=== PATIENT | female | born 1975 | race African-American/Black ===

== ENCOUNTER 2020-07-05 11:16 | Emergency (ER) | payer OTHER ==
[~2020-07-05] VITALS: Ht 167.6 cm; Wt 135.4 kg
[~2020-07-05 11:16] MED LIST: CETIRIZINE10 MG PO; DENIES CURRENT MEDS; ERY-TAB333 MG OR; FIORICET PO; LORTAB 1010 MG PO; METAMUCIL28 % OR; MUPIROCIN2 % EX; NAPROSYN375 MG OR; NAPROSYN500 MG PO; NO HOME MEDS; OMEPRAZOLE10 MG PO; PROMETHAZINE25 MG OR; ULTRAM50 MG OR; VICOPROFEN PO; ZITHROMAX250 MG OR; ZOFRAN ODT4 MG OR; ZOFRAN ODT4 MG PO; ZPAK PO; [UNRECOGNIZED DRUG - CODE] OR
[2020-07-05 11:53] LABS: URINE BILIRUBIN - DIPSTICK NEGATIVE (NEGATIVE); URINE BLOOD DIPSTICK NEGATIVE (NEGATIVE); URINE COLOR YELLOW; URINE GLUCOSE - DIPSTICK NEGATIVE (NEGATIVE); URINE KETONE NEGATIVE (NEGATIVE); URINE LEUK ESTERASE NEGATIVE (NEGATIVE); URINE NITRITE - DIPSTICK NEGATIVE (Negative); URINE PH 5.5 (4.5-8.0); URINE PROTEIN - DIPSTICK NEGATIVE (NEG-TRACE); URINE SPECIFIC GRAVITY 1.025; URINE UROBILINOGEN - DIPSTICK 0.2 E.U./dL (0.2)
[2020-07-05 12:22] LABS: HEMATOCRIT 34.8 % (37.0-47.0); HEMOGLOBIN 10.9 g/dl (12.0-16.0); IMMATURE GRANULOCYTES 0.2 % (0.0-5.0); MEAN CELL VOLUME 89.7 fL CALC (80.0-100.0); MEAN CORPUSCULAR HGB 28.1 pG CALC (26.0-32.0); MEAN CORPUSCULAR HGB CONC 31.3 g/dL CAL (32.0-36.0); NEUT# 6.29 thou/uL (2.00-7.15); RED BLOOD COUNT 3.88 mill/uL (4.20-5.60)
[2020-07-05 12:25] LABS: ALBUMIN 3.9 g/dL (3.2-5.0); ALKALINE PHOSPHATASE 89 u/l (38-126); ANION GAP 10 (6-22 (CALC)); BILIRUBIN, TOTAL 0.1 mg/dL (0.0-1.4); BUN 13 mg/dL (7-17); BUN/CREATININE RATIO 17 (12-20 (CALC)); CARBON DIOXIDE 28 mmol/l (22-30); CHLORIDE 106 mmol/l (95-108); CREATININE 0.8 mg/dL (0.5-1.0); GFR > 60 ML/MIN (>=60 (CALC)); GFR FOR AFR.AMER. > 60 ML/MIN (>=60 (CALC)); POTASSIUM 4.2 mmol/l (3.5-5.1); SGOT/AST 24 u/l (14-36); SODIUM 139 mmol/l (137-146); TOTAL PROTEIN 7.4 g/dL (6.3-8.2)
[2020-07-05 12:50] VITALS: BP 132/69
== END 2020-07-05 12:50 | disposition home or self-care (01) ==
LOC: ED 11:16
PROVIDERS: Emergency Medicine
DX: F41.9 Anxiety disorder, unspecified (principal)

== ENCOUNTER 2020-12-27 13:53 | Emergency (ER) | payer OTHER ==
[~2020-12-27] VITALS: Ht 167.6 cm; Wt 125.0 kg
[2020-12-27] MEDS ORDERED: ZPAK PO (14:55)
[2020-12-27] MEDS ORDERED: CODEINE/GUAIFEN1 SOL PO (14:55)
[2020-12-27 15:04] VITALS: BP 122/82
== END 2020-12-27 15:10 | disposition home or self-care (01) ==
LOC: ED 13:53
DX: J40 Bronchitis, not specified as acute or chronic (principal); J32.9 Chronic sinusitis, unspecified; Z20.822 Contact with and (suspected) exposure to COVID-19

== ENCOUNTER 2021-12-27 14:18 | Emergency (ER) | payer OTHER ==
[2021-12-27] VITALS (7 sets, daily range): BP systolic 119–145; BP diastolic 75–86
[~2021-12-27] VITALS: Ht 167.6 cm; Wt 135.4 kg
[~2021-12-27 14:18] MED LIST changes: +CODEINE/GUAIFEN1 SOL PO
[2021-12-27] MEDS ORDERED: PEPCID40 MG PO (14:37)
[2021-12-27] MEDS ORDERED: ATORVASTATIN CA80 MG PO (14:38)
[2021-12-27] MEDS ORDERED: PAXLOVID PO (15:25)
== END 2021-12-27 15:41 | disposition home or self-care (01) ==
LOC: ED 14:18
DX: U07.1 COVID-19 (principal); R50.9 Fever, unspecified; R05.9 Cough, unspecified; R11.2 Nausea with vomiting, unspecified; R19.7 Diarrhea, unspecified

== ENCOUNTER 2022-04-09 08:26 | Emergency (ER) | payer OTHER ==
[~2022-04-09] VITALS: Ht 167.6 cm; Wt 129.0 kg
[~2022-04-09 08:26] MED LIST changes: +ATORVASTATIN CA80 MG PO; +PAXLOVID PO; +PEPCID40 MG PO
[2022-04-09 08:43] VITALS: BP 135/77
[2022-04-09] MEDS ORDERED: BACTRIM DS1 TAB PO (09:17)
[2022-04-09] MEDS ORDERED: CEPHALEXIN500 M1 PO (09:18)
[2022-04-09] MEDS ORDERED: ZOFRAN4 MG/TAB PO (09:18)
[2022-04-09 09:23] VITALS: BP 135/77
== END 2022-04-09 09:31 | disposition home or self-care (01) ==
LOC: ED 08:26
DX: L02.215 Cutaneous abscess of perineum (principal); E78.00 Pure hypercholesterolemia, unspecified

== ENCOUNTER 2022-09-19 10:43 | Emergency (ER) | payer OTHER ==
[~2022-09-19] VITALS: Ht 167.6 cm; Wt 127.0 kg
[~2022-09-19 10:43] MED LIST changes: +BACTRIM DS1 TAB PO; +CEPHALEXIN500 M1 PO; +ZOFRAN4 MG/TAB PO
[2022-09-19 11:14] VITALS: BP 146/92
[2022-09-19] MEDS ORDERED: AMOX/K CLAV875 M1 PO (11:18)
[2022-09-19 11:30] VITALS: BP 140/88
[2022-09-19 11:37] VITALS: BP 140/88
== END 2022-09-19 11:50 | disposition home or self-care (01) ==
LOC: ED 10:43
DX: J02.9 Acute pharyngitis, unspecified (principal); E78.00 Pure hypercholesterolemia, unspecified

== ENCOUNTER 2023-12-08 09:49 | Emergency (ER) | payer OTHER ==
[~2023-12-08] VITALS: Ht 167.6 cm; Wt 129.3 kg
[~2023-12-08 09:49] MED LIST changes: +AMOX/K CLAV875 M1 PO
[2023-12-08] MEDS ORDERED: LEVOTHYROXIN75 MC1 PO (10:02)
[2023-12-08] MEDS ORDERED: NAPROXEN500 MG PO (10:53)
[2023-12-08 11:10] VITALS: BP 132/65
== END 2023-12-08 11:22 | disposition home or self-care (01) | DRG 556 ==
LOC: ED 09:49
PROC: 2W3JX1Z Immobilization of Right Finger using Splint (ICD-10-PCS; principal; 2023-12-08)
DX: M79.644 Pain in right finger(s) (principal); M25.441 Effusion, right hand; E66.9 Obesity, unspecified

== ENCOUNTER 2024-07-07 13:18 | Emergency (ER) | payer OTHER ==
[~2024-07-07] VITALS: Ht 167.6 cm; Wt 128.0 kg
[~2024-07-07 13:18] MED LIST changes: +LEVOTHYROXIN75 MC1 PO; +NAPROXEN500 MG PO
[2024-07-07 13:26] VITALS: BP 139/92
[2024-07-07 13:31] VITALS: BP 150/101
[2024-07-07] MEDS ORDERED: IPRATROPIUM-Albuterol 0.5MG-2.5MG/3 ML NEB ONE (13:40)
[2024-07-07] MEDS ORDERED: predniSONE 20 MG/TAB PO ONE (13:40)
[2024-07-07 13:45] VITALS: BP 147/99
[2024-07-07 14:00] VITALS: BP 153/94
[2024-07-07] MEDS ORDERED: MEDDOSEPAK PO (14:00)
[2024-07-07] MEDS ORDERED: ZYRTEC10 MG PO (14:00)
[2024-07-07] MEDS ORDERED: ZPAK PO (14:00)
[2024-07-07] MEDS ORDERED: BENZONATATE200 MG PO (14:05)
[2024-07-07 14:15] VITALS: BP 154/105
== END 2024-07-07 14:15 | disposition home or self-care (01) | DRG 153 ==
LOC: ED 13:18
DX: J06.9 Acute upper respiratory infection, unspecified (principal); J32.9 Chronic sinusitis, unspecified; Z20.822 Contact with and (suspected) exposure to COVID-19